=== PATIENT | male | born 1935 | race Caucasian/White ===

== ENCOUNTER 2019-03-02 19:26 | Observation (INO) | payer OTHER ==
[~2019-03-02] VITALS: Ht 180.3 cm; Wt 89.7 kg
[~2019-03-02 19:26] MED LIST: ADVANCED AM/PM1 EACH PO; ATOR40TA PO; Acid Control20 MG PO; CALCAVITDA PO; CARV6.25 PO; CEREFOLIN NAC1 EACH PO; CHOL10002 PO; CLOP75 PO; Chondroitin Su250 MG PO; Coreg Cr10 MG PO; DEPLIN-ALGAL O1 EAC1 PO; DONE10 PO; DONE5 PO; Drisdol50000 UNIT PO; FAMO10 PO; FAMO20 PO; FLUT.05NI; GLUC500 PO; GLUCHON PO; Garlic Oil1000 MG PO; IPRA.06NI; LISI10 PO; LISI20 PO; LISI5 PO; LUPRON IJ; MAGN84; MAGOXI400 PO; MELO7.5; MELO7.5 PO; MELOXICAM PO; META800 PO; MULTI-MINERAL; OLOP.1OPSO BOTHEYES; OLOP.1OPSO OD; OMEG1CAP30 PO; PANTOTHENIC ACID; PRAV20 PO; PSYL5.85P PO; RA VITAMIN C 5500 MG PO; RANI150; RANI150 PO; SOYA LECITHIN; SULFA PO; TOCO400 PO; Tylenol With C1 EACH PO; VASCEPA1 GM PO; VENL75ER; VITA25000 PO; VITAMIN D PO; Vitamin E & K S52 ML TP; [UNRECOGNIZED DRUG - OTHER]; [UNRECOGNIZED DRUG - REMARK] PO
[2019-03-02 21:10] LABS: BASOPHILS ABSOLUTE AUTO 0.03 K/mm3 (0.00-0.23); BASOPHILS PERCENT AUTO 1 % (0-2); EOSINOPHILS ABSOLUTE AUTO 0.22 K/mm3 (0.00-0.68); EOSINOPHILS PERCENT AUTO 5 % (0-6); Hematocrit 39.5 % (37.0-53.0); Hemoglobin 13.3 g/dL (13.5-17.5); IMMATURE GRAN ABSOLUTE AUTO 0.01 K/mm3 (0.00-0.10); IMMATURE GRAN PERCENT AUTO 0 % (0-1); LYMPHOCYTES ABSOLUTE AUTO 0.67 K/mm3 (0.84-5.20); LYMPHOCYTES PERCENT AUTO 14 % (21-46); MONOCYTES ABSOLUTE AUTO 0.49 K/mm3 (0.16-1.47); MONOCYTES PERCENT AUTO 10 % (4-13); Mean Corpuscular HGB 31.9 pg (26.0-34.0); Mean Corpuscular HGB Conc 33.7 g/dL (31.5-36.5); Mean Corpuscular Volume 95 fL (80-100); Mean Platelet Volume 8.4 fL (9.1-12.4); NEUTROPHILS ABSOLUTE AUTO 3.33 K/mm3 (1.96-9.15); NEUTROPHILS PERCENT AUTO 70 % (41-73); Platelet Count 142 K/mm3 (150-400); RDW Coefficient Variation 12.9 % (11.7-14.2); RDW Standard Deviation 44.7 fL (35.1-46.3); Red Blood Cell Count 4.17 M/mm3 (4.30-5.90); White Blood Cell Count 4.75 K/mm3 (4.00-11.30)
[2019-03-02 21:28] LABS: Alanine Aminotransfer (ALT/SGP 23 U/L (12-78); Albumin, Blood 3.5 g/dL (3.4-5.0); Albumin/Globulin Ratio 1.2 (0.8-1.8); Alk Phos 97 U/L (50-136); Anion Gap 4 mmol/L (6-16); Aspartate Aminotrans (AST/SGOT 15 U/L (12-37); Bilirubin, Total 0.5 mg/dL (0.1-1.0); Blood Urea Nitrogen 21 mg/dL (8-24); Bun/Creatinine Ratio 17.8 (12.0-20.0); CO2, Blood 28 mmol/L (21-32); Calcium, Blood 8.7 mg/dL (8.5-10.1); Chloride, Blood 110 mmol/L (98-108); Creatinine, Blood 1.18 mg/dL (0.60-1.20); Globulin, Blood 2.8 g/dL (2.2-4.0); Glomerular Filtration Rate >60 (60-); Glucose, Blood 131 mg/dL (70-99); Potassium, Blood 4.3 mmol/L (3.5-5.5); Sodium, Blood 142 mmol/L (136-145); Total Protein, Blood 6.3 g/dL (6.4-8.2)
[2019-03-02 22:33] LABS: Troponin I <0.015 ng/mL (0.000-0.040)
[2019-03-03] MEDS ORDERED: St. John's Wor300 MG PO (02:04)
--- NOTE | 2019-03-03 03:39 | NUR ---
PT ADMITTED THIS NIGHT FOR TIA WITH DOUBLE VISSION. HE STATES HIS VISION IMPROVES WITH SITTING UP AND WORSENS WITH LAYING DOWN. WAQAR. CREATIVE SERVICES INTERN EQUAL AND STRONG, AAOX4, RESP EVEN AND UNLABORED, LEG STRENGTH EQUAL, SENSATOIN INTACT IN ALL EXCTREMETIES, FACE SYMMETRICAL WITH NO DROOPING. STATES NORMAL LEVEL OF STRENGTH. STATES ONLY UNUSUAL SYMPTOM IS THE DOUBLE VISION. HAS HAD SOME TINNITIS FOR PAST COUPLE WEEKS. CAME TO FLOOR WITH PT AND HELPED WITH HISTORY AND MED REC. HE HAS ALZHEIMERS AND TAKES MEDICATOIN FOR THIS. THESE MEDS ARE NOT ON THE [facility] AND THEY DO NOT KNOW THE NAMES AND DOSES. TO BRING IN CURRENT MED LIST IN THE MORNING.
[2019-03-03 04:59] LABS: Hemoglobin 13.5 g/dL (13.5-17.5); Mean Corpuscular HGB 31.1 pg (26.0-34.0); Mean Corpuscular HGB Conc 32.9 g/dL (31.5-36.5); Mean Corpuscular Volume 95 fL (80-100); Mean Platelet Volume 8.3 fL (9.1-12.4); Platelet Count 133 K/mm3 (150-400); RDW Coefficient Variation 12.9 % (11.7-14.2); RDW Standard Deviation 44.4 fL (35.1-46.3); Red Blood Cell Count 4.34 M/mm3 (4.30-5.90); White Blood Cell Count 6.17 K/mm3 (4.00-11.30)
[2019-03-03 05:38] LABS: Alanine Aminotransfer (ALT/SGP 21 U/L (12-78); Albumin, Blood 3.5 g/dL (3.4-5.0); Albumin/Globulin Ratio 1.2 (0.8-1.8); Alk Phos 97 U/L (50-136); Anion Gap 8 mmol/L (6-16); Aspartate Aminotrans (AST/SGOT 17 U/L (12-37); Bilirubin, Total 0.7 mg/dL (0.1-1.0); Blood Urea Nitrogen 20 mg/dL (8-24); Bun/Creatinine Ratio 20.2 (12.0-20.0); CO2, Blood 22 mmol/L (21-32); Calcium, Blood 8.8 mg/dL (8.5-10.1); Chloride, Blood 111 mmol/L (98-108); Creatinine, Blood 0.99 mg/dL (0.60-1.20); Globulin, Blood 2.8 g/dL (2.2-4.0); Glomerular Filtration Rate >60 (60-); Glucose, Blood 125 mg/dL (70-99); Potassium, Blood 3.8 mmol/L (3.5-5.5); Sodium, Blood 141 mmol/L (136-145); Total Protein, Blood 6.3 g/dL (6.4-8.2)
--- NOTE | 2019-03-03 07:04 | NUR ---
NOC SHIFT SUMMARY NOT ACUTE CHANGES NOTED SINCE PRIOR NOTE. REPORT TO ONCOMING RN.
[2019-03-03] MEDS ORDERED: CLOP75 PO (11:01)
[2019-03-03] MEDS ORDERED: MEMA10 PO (11:01)
[2019-03-03] MEDS ORDERED: GALA4 PO (11:02)
[2019-03-03 14:39] LABS: Bilirubin, Urine Neg (Neg); Blood, Urine Neg (Neg); Glucose Qualitative, Urine Neg (Neg); Ketones, Urine Neg (Neg); Leukocyte Esterase, Urine Neg (Neg); Nitrite, Urine Neg (Neg); Protein, Urine Neg (Neg); Source, Urine Clean Catch; Specific Gravity, Urine 1.005 (1.003-1.022); Urobilinogen, Urine NORM (Normal)
[2019-03-03 14:57] LABS: Appearance, Urine Clear (Clear); Color, Urine Yellow (P-Yellow)
--- NOTE | 2019-03-03 16:53 | NUR ---
Inital spiritual care note: Mr. Mills tells me immediately that he is an atheist. That said, he engaged well in conversation. His , Ruth, was at bedside. 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 We have a good rapport and she is appreciaitive of spiritual support/consumer credit counselor. She tells me that Forrest has dementia and they are raising their two 16 year-old twin grandsons. Clearly, she is overwhelmed, but she smiles easily. Forrest denied concerns and Ruth beleives he will improve with medication adjustment. We did not address code status, but I will attempt this conversation in coming days. Encouraged self-care. I will remain available.
--- NOTE | 2019-03-03 17:43 | NUR ---
SUMMARY PT SITTING UP IN BED EATING HIS DINNER, PT HAS BEEN PLEASANT AND COOPERATIVE WITH CARE T/O THE DAY, UP TO THE BATHROOM WITH MIN ASSIST, PT C/O DOUBLE VISION TODAY, NO OTHER COMPLAINTS, SPOUSE AND BROTHER HAVE BEEN IN TO VISIT, NO ACUTE CHANGES, WILL CONT TO MONITOR
--- NOTE | 2019-03-03 19:59 | NUR ---
PT COMFORTABLE AND DENIES PAIN/COMPLAINTS AT THIS TIME.
--- NOTE | 2019-03-04 05:59 | NUR ---
SUMMARY: A/OX3 AND CALLS APPROPRIATELY FOR ASSIST OR WALKS INTO HALLS TO SPECIFY NEEDS. STATED HE HAS DEMENTIA BUT CONFUSION NOT OBSERVED THIS SHIFT. HE HAS STEADY GAIT BUT CONT'S TO REPORT PERSISTENT DOUBLE VISION. PT IN NSR W/1ST DEGREE BLOCK PER TELEMETRY, HR 60'S BPM AND BP REMAINS ELEVATED. HYDRALAZINE 10MG IV PRN RECIEVED X1 FOR SBP>190, BP IMPROVED THIS AM TO SBP 170'S. NORVASC WILL BE COMMENCED TODAY AND LISINOPRIL WAS CHANGED TO BID, WILL HAVE DAY RN MONITOR FOR EFFECT. PT ALSO NEEDS EYE GTT RX CLARIFIED AND HOME MEDS: NAMENDA AND REMINYL RX'D, WILL ENSURE DAY STAFF ARE AWARE. NO ACUTE CHANGES, VSS/AFEBRILE. PT DENIED PAIN/COMPLAINTS. WCTM AND REPORT TO DAY RN.
[2019-03-04 06:16] LABS: BASOPHILS ABSOLUTE AUTO 0.04 K/mm3 (0.00-0.23); BASOPHILS PERCENT AUTO 1 % (0-2); EOSINOPHILS ABSOLUTE AUTO 0.14 K/mm3 (0.00-0.68); EOSINOPHILS PERCENT AUTO 2 % (0-6); Hematocrit 38.8 % (37.0-53.0); Hemoglobin 13.3 g/dL (13.5-17.5); IMMATURE GRAN ABSOLUTE AUTO 0.03 K/mm3 (0.00-0.10); IMMATURE GRAN PERCENT AUTO 1 % (0-1); LYMPHOCYTES ABSOLUTE AUTO 0.62 K/mm3 (0.84-5.20); LYMPHOCYTES PERCENT AUTO 10 % (21-46); MONOCYTES ABSOLUTE AUTO 0.62 K/mm3 (0.16-1.47); MONOCYTES PERCENT AUTO 10 % (4-13); Mean Corpuscular HGB 31.7 pg (26.0-34.0); Mean Corpuscular HGB Conc 34.3 g/dL (31.5-36.5); Mean Corpuscular Volume 93 fL (80-100); Mean Platelet Volume 8.5 fL (9.1-12.4); NEUTROPHILS ABSOLUTE AUTO 4.84 K/mm3 (1.96-9.15); NEUTROPHILS PERCENT AUTO 77 % (41-73); Platelet Count 134 K/mm3 (150-400); RDW Standard Deviation 43.9 fL (35.1-46.3); Red Blood Cell Count 4.19 M/mm3 (4.30-5.90); White Blood Cell Count 6.29 K/mm3 (4.00-11.30)
[2019-03-04 06:34] LABS: Anion Gap 8 mmol/L (6-16); Blood Urea Nitrogen 18 mg/dL (8-24); Bun/Creatinine Ratio 16.4 (12.0-20.0); CO2, Blood 23 mmol/L (21-32); Calcium, Blood 8.9 mg/dL (8.5-10.1); Chloride, Blood 109 mmol/L (98-108); Glomerular Filtration Rate >60 (60-); Glucose, Blood 116 mg/dL (70-99); Potassium, Blood 3.8 mmol/L (3.5-5.5); Sodium, Blood 140 mmol/L (136-145)
--- NOTE | 2019-03-04 12:57 | NUR ---
Permission for care was given 03/04/2019 at 1250.
[2019-03-04] MEDS ORDERED: AMLO5 PO (17:54)
[2019-03-04] MEDS ORDERED: HYDCHL25 PO (17:55)
--- NOTE | 2019-03-04 18:18 | NUR ---
SUMMARY/DISCHARGE PT DISCHARGED TO HOME, PT AND SPOUSE VERBALIZED UNDERSTANDING OF DISCHARGE INSTRUCTIONS REGARDING MEDS AND FOLLOW UP, PT TAKEN OUT SAFELY VIA WHEELCHAIR
== END 2019-03-04 18:19 | disposition home or self-care (01) ==
LOC: ER 19:26 → MEDS 19:27 → ER 03-03 00:51 → MEDS 03-03 00:51
PROVIDERS: Family Medicine; Physician Assistant; ADMIT Internal Medicine
DX: H53.2 Diplopia (principal); I10 Essential (primary) hypertension; E78.5 Hyperlipidemia, unspecified; G30.9 Alzheimer's disease, unspecified; K21.9 Gastro-esophageal reflux disease without esophagitis; N40.0 Benign prostatic hyperplasia without lower urinary tract symptoms; F02.80 Dementia in other diseases classified elsewhere, unspecified severity, without behavioral disturbance, psychotic disturbance, mood disturbance, and anxiety; Z79.02 Long term (current) use of antithrombotics/antiplatelets; Z79.899 Other long term (current) drug therapy; Z86.73 Personal history of transient ischemic attack (TIA), and cerebral infarction without residual deficits; Z85.46 Personal history of malignant neoplasm of prostate; Z87.442 Personal history of urinary calculi
CPT/HCPCS: 36415; 70450; 70551; 80048; 80053; 81003; 84484; 85025; 85027; 93005; 93010; 93306; 93880; 96374; 99285-25; J0360; J1650; J7030

== ENCOUNTER → 2019-08-11 | Outpatient (CLI) | payer OTHER ==
[~2019-08-11] MED LIST changes: +AMLO5 PO; +GALA4 PO; +HYDCHL25 PO; +MEMA10 PO; +St. John's Wor300 MG PO
== END | disposition home or self-care (01) ==
LOC: PLD 11:40 → LAB SHORT 11:40
DX: B07.9 Viral wart, unspecified (principal)
CPT/HCPCS: 88305

== ENCOUNTER 2019-10-08 10:31 | Day surgery (SDC) | payer OTHER | END 2019-10-08 22:39 | disposition home or self-care (01) | LOC: US 10:31 | DX: D11.0 Benign neoplasm of parotid gland (principal) | CPT/HCPCS: 10005; 10006; 88173 ==

== ENCOUNTER → 2020-02-09 | Outpatient (CLI) | payer OTHER | LOC: LAB SHORT 11:49 → PLD 11:49 | DX: D48.5 Neoplasm of uncertain behavior of skin (principal) | CPT/HCPCS: 88305 ==

== ENCOUNTER → 2023-03-30 | Outpatient (CLI) | payer OTHER ==
[~2023-03-30] MED LIST changes: +Norco 5-325 Ta1 EACH PO
== END | disposition home or self-care (01) ==
LOC: LAB 12:00 → LAB SHORT 12:00
DX: T81.31XA Disruption of external operation (surgical) wound, not elsewhere classified, initial encounter (principal)
CPT/HCPCS: 87070; 87205

== ENCOUNTER 2024-02-16 09:23 | Emergency (ER) | payer OTHER ==
[~2024-02-16] VITALS: Ht 180.3 cm; Wt 91.2 kg
[2024-02-16 10:40] VITALS: BP 160/75
[2024-02-16 10:57] LABS: Source, Urine Clean Catch
[2024-02-16 11:53] LABS: Bilirubin, Urine Neg (Neg); Blood, Urine 5+ (Neg); Glucose Qualitative, Urine Neg (Neg); Ketones, Urine Neg (Neg); Leukocyte Esterase, Urine 1+ (Neg); Nitrite, Urine Neg (Neg); Protein, Urine 2+ (Neg); Urobilinogen, Urine NORM (Normal)
[2024-02-16 12:22] LABS: Appearance, Urine Hazy (Clear); Bacteria Few /hpf; Color, Urine Yellow (P-Yellow); Squamous Epithelial Cells Few /hpf (Few); White Blood Cells, Urine 25-50 /hpf (0-5)
[2024-02-16] MEDS ORDERED: Macrobid 100 M100 MG PO (15:34)
== END 2024-02-16 15:35 | disposition home or self-care (01) ==
LOC: ER 09:23
PROVIDERS: Student in an Organized Health Care Education/Training Program
DX: N39.0 Urinary tract infection, site not specified (principal); R31.9 Hematuria, unspecified; K21.9 Gastro-esophageal reflux disease without esophagitis; E78.5 Hyperlipidemia, unspecified; I10 Essential (primary) hypertension; Z86.73 Personal history of transient ischemic attack (TIA), and cerebral infarction without residual deficits; Z87.891 Personal history of nicotine dependence; Z79.899 Other long term (current) drug therapy; Z79.02 Long term (current) use of antithrombotics/antiplatelets
CPT/HCPCS: 81001; 87086; 99283

== ENCOUNTER 2024-03-15 23:04 | Emergency (ER) | payer OTHER ==
[~2024-03-15] VITALS: Ht 180.3 cm; Wt 90.7 kg
[~2024-03-15 23:04] MED LIST changes: +Macrobid 100 M100 MG PO
[2024-03-15 23:57] LABS: BASOPHILS ABSOLUTE AUTO 0.03 K/mm3 (0.00-0.23); BASOPHILS PERCENT AUTO 1 % (0-2); EOSINOPHILS ABSOLUTE AUTO 0.31 K/mm3 (0.00-0.68); EOSINOPHILS PERCENT AUTO 6 % (0-6); Hematocrit 37.7 % (37.0-53.0); Hemoglobin 12.4 g/dL (13.5-17.5); IMMATURE GRAN ABSOLUTE AUTO 0.02 K/mm3 (0.00-0.10); IMMATURE GRAN PERCENT AUTO 0 % (0-1); LYMPHOCYTES ABSOLUTE AUTO 0.81 K/mm3 (0.84-5.20); LYMPHOCYTES PERCENT AUTO 16 % (21-46); MONOCYTES ABSOLUTE AUTO 0.64 K/mm3 (0.16-1.47); MONOCYTES PERCENT AUTO 12 % (4-13); Mean Corpuscular HGB 32.2 pg (26.0-34.0); Mean Corpuscular HGB Conc 32.9 g/dL (31.5-36.5); Mean Corpuscular Volume 98 fL (80-100); Mean Platelet Volume 8.3 fL (9.1-12.4); NEUTROPHILS ABSOLUTE AUTO 3.38 K/mm3 (1.96-9.15); NEUTROPHILS PERCENT AUTO 65 % (41-73); Platelet Count 142 K/mm3 (150-400); RDW Coefficient Variation 13.4 % (11.7-14.2); RDW Standard Deviation 48.1 fL (35.1-46.3); Red Blood Cell Count 3.85 M/mm3 (4.30-5.90); White Blood Cell Count 5.19 K/mm3 (4.00-11.30)
[2024-03-16 00:43] LABS: Source, Urine Clean Catch
[2024-03-16 00:51] LABS: Appearance, Urine Bloody (Clear); Bilirubin, Urine Neg (Neg); Blood, Urine 5+ (Neg); Color, Urine Red (P-Yellow); Glucose Qualitative, Urine Neg (Neg); Ketones, Urine Neg (Neg); Leukocyte Esterase, Urine Neg (Neg); Nitrite, Urine Neg (Neg); Protein, Urine 4+ (Neg); Urobilinogen, Urine NORM (Normal); pH, Urine 6.5 (5.0-8.0)
[2024-03-16 01:03] LABS: Bacteria Mod /hpf; Red Blood Cells, Urine TNTC /hpf (0-2); Squamous Epithelial Cells Few /hpf (Few)
[2024-03-16 02:19] VITALS: BP 171/89
== END 2024-03-16 02:23 | disposition home or self-care (01) ==
LOC: ER 23:04
PROVIDERS: Student in an Organized Health Care Education/Training Program
DX: R31.9 Hematuria, unspecified (principal); K21.9 Gastro-esophageal reflux disease without esophagitis; I10 Essential (primary) hypertension; E78.5 Hyperlipidemia, unspecified; N20.0 Calculus of kidney; Z87.891 Personal history of nicotine dependence; Z79.899 Other long term (current) drug therapy; Z79.02 Long term (current) use of antithrombotics/antiplatelets; Z79.1 Long term (current) use of non-steroidal anti-inflammatories (NSAID); Z79.811 Long term (current) use of aromatase inhibitors
CPT/HCPCS: 76770; 81001; 85025; 87086; 99284-25

== ENCOUNTER → 2024-04-28 | Outpatient (CLI) | payer OTHER | LOC: LAB SHORT 17:14 → LAB 17:14 | DX: R31.0 Gross hematuria (principal) | CPT/HCPCS: 87086 ==